=== PATIENT | male | born 1985 | race Caucasian/White ===

== ENCOUNTER 2017-08-11 12:26 | Emergency (ER) | payer OTHER ==
[2017-08-11 12:51] VITALS: BP 114/68; PULSE 69; RESP 18; TEMP 97.6
--- NOTE | 2017-08-11 14:11 | ED ---
Lower Extremity Injury HPI - General Chief Complaint: Extremity Injury, Lower Stated Complaint: Hip Pain-Fall Time Seen by Provider: 08/11/17 13:03 Source: patient, RN notes reviewed Mode of arrival: wheelchair Limitations: no limitations - History of Present Illness Initial Comments: This is a 32-year-old male who presents to the emergency department with chief complaint of right hip injury. Patient states that on Friday he slipped on a puddle of water in his kitchen. He states that he was able to catch himself but came down hard on his right foot. Since that time he has been experiencing right hip pain. He states that it is difficult to walk or move due to the pain. Denies any other injuries or trauma. Denies numbness or tingling. Denies fever, chills, chest pain, shortness of breath, abdominal pain, nausea or vomiting, constipation or diarrhea, dysuria or hematuria, headache or vision changes. - Related Data Previous Rx's Medication Instructions Recorded HYDROcodone/APAP 5-325MG [[employer] 1 - 2 tab PO Q6HR PRN #20 tab 05/25/16 5-325] Ibuprofen [Motrin] 800 mg PO Q8HR PRN #20 tab 05/25/16 Penicillin V Potassium [Pen Vee K] 500 mg PO QID 7 Days tab 05/25/16 Lidocaine Viscous [Xylocaine 1 ml PO Q3H PRN #25 ml 05/26/16 Viscous 2%] Ibuprofen 600 mg PO Q6HR #20 tablet 08/11/17 Allergies Allergy/AdvReac Type Severity Reaction Status Date / Time wool Allergy Unknown Verified 08/11/17 12:50 Review of Systems ROS Statement: Those systems with pertinent positive or pertinent negative responses have been documented in the HPI. ROS Other: All systems not noted in ROS Statement are negative. Past Medical History Past Medical History: No Reported History Additional Past Medical History / Comment(s): kidney stones History of Any Multi-Drug Resistant Organisms: MRSA Date of last positivie culture/infection: 2003 MDRO Source:: right elbow Past Surgical History: No Surgical Hx Reported Additional Past Surgical History / Comment(s): vastecomty 2013 Past Psychological History: No Psychological Hx Reported Smoking Status: Former smoker Past Alcohol Use History: Occasional Past Drug Use History: None Reported General Exam - General Exam Comments Initial Comments: General: Awake and alert, well-developed; in no apparent distress. is at bedside. HEENT: Head atraumatic, normocephalic. Pupils are equal, round and reactive to light. Extraocular movements intact. Oropharynx moist without erythema or exudate. Neck: Supple. Normal ROM. Cardiovascular: Regular rate and rhythm. No murmurs, rubs or gallops. Chest symmetrical. Respiratory: Lungs clear to auscultation bilaterally. No wheezes, rales or rhonchi. Normal respiratory effort with no use of accessory muscles. Musculoskeletal: Normal range of motion of the right hip. There is tenderness on palpation at greater trochanter. Sensation is intact. Pedal pulses are 2+ equal and palpable bilaterally. No obvious gross deformities, swelling or contusions noted. Skin: [place], warm and dry without rashes or lesions. Neurological: Alert and oriented x3. CN II-XII grossly intact. Speech is fluent and answers are appropriate. No focal neuro deficits. Psychiatric: Normal mood and affect. No overt signs of depression or anxiety noted. Limitations: no limitations Course Vital Signs 08/11/17 12:47 Temperature 97.6 F Pulse Rate 69 Respiratory 18 Rate Blood Pressure 114/68 O2 Sat by Pulse 100 Oximetry Medical Decision Making - Medical Decision Making This is a 32-year-old male who presented to the emergency department for evaluation of right hip injury. Patient did not fall directly onto his right hip but came down hard onto his right foot. Patient reports he has had difficulty ambulating due to pain in his right hip. Tenderness on palpation of the greater trochanter. X-rays revealed no acute fractures or dislocations. Patient is recommended to take anti-inflammatories and ice. Recommended stretching exercises. Recommended following up with his primary care provider. Patient is in no acute distress and will be discharged home. He is in agreement with plan and voices understanding. All questions were answered. - Radiology Data Radiology results: report reviewed X-ray right hip and AP pelvis impression: There is no acute fracture or dislocation in the pelvis or right hip. Mild femoral acetabular arthropathy bilaterally. Disposition Clinical Impression: Strain of right hip Disposition: HOME SELF-CARE Condition: Good Instructions: Hip Pain (ED), Muscle Strain (ED) Additional Instructions: Please take medications as prescribed. Please follow up with primary care provider within 1-2 days. Return to emergency department if symptoms should worsen or any concerns arise. Prescriptions: Ibuprofen 600 mg PO Q6HR #20 tablet Referrals: Meaghan Schmidt MD [Primary Care Provider] - 1-2 days Time of Disposition: 14:39
--- NOTE | 2017-08-11 14:14 | XR ---
EXAMINATION TYPE: XR Hip RT and AP Pelvis DATE OF EXAM: 08/11/2017 COMPARISON: NONE HISTORY: Right hip pain after injury. TECHNIQUE: A single AP view of the pelvis is obtained. Two views of the right hip are obtained. FINDINGS: There is no acute fracture/dislocation evident in the pelvis. The hip and sacroiliac join ts appear symmetric with mild femoral acetabular arthropathy demonstrated as small marginal osteophyt es from the acetabulum bilaterally. The overlying soft tissue appears unremarkable. Two views of right hip show no acute fracture or dislocation. No focal lytic or sclerotic lesion see n in the proximal right femur. The overlying soft tissue is unremarkable. IMPRESSION: There is no acute fracture or dislocation in the pelvis or right hip. Mild femoral aceta bular arthropathy bilaterally.
== END 2017-08-11 14:46 | disposition home or self-care (01) ==
LOC: EC 12:26
DX: S76.011A Strain of muscle, fascia and tendon of right hip, initial encounter (principal); Z86.14 Personal history of Methicillin resistant Staphylococcus aureus infection; Z87.891 Personal history of nicotine dependence; Z91.048 Other nonmedicinal substance allergy status; W01.0XXA Fall on same level from slipping, tripping and stumbling without subsequent striking against object, initial encounter; Y92.000 Kitchen of unspecified non-institutional (private) residence as the place of occurrence of the external cause
CPT/HCPCS: 73502; 99283

== ENCOUNTER → 2018-06-20 | Outpatient (CLI) | payer OTHER ==
--- NOTE | 2018-06-20 08:15 | MR ---
EXAMINATION TYPE: MR shoulder LT wo con DATE OF EXAM: 06/20/2018 7:43 AM COMPARISON: NONE HISTORY: Left shoulder pain TECHNIQUE: Multiplanar, multisequence imaging of the left shoulder is performed without contrast. FINDINGS: There is no evidence of an os acromiale. There is mild hypertrophic change and inflammatory changes in the left AC joint. The acromion is neutral. There is a small amount of fluid in this rotated. There is no evidence of a rotator cuff tear. The cartilaginous glenoid labrum appears unremarkable. The biceps tendon is normally situated within the biceps tendon groove and inserts normally upon the biceps anchor. No osseous lesion is seen. IMPRESSION: 1. NO EVIDENCE OF ROTATOR CUFF TEAR. 2. SMALL AMOUNT OF FLUID IN THE ROTATOR INTERVAL IS A NONSPECIFIC FINDING.
== END | disposition home or self-care (01) ==
LOC: RADMRIMAIN 07:11
PROVIDERS: ATTEND Orthopaedic Surgery
DX: M25.512 Pain in left shoulder (principal)

== ENCOUNTER → 2022-08-21 | Outpatient (CLI) | payer OTHER ==
--- NOTE | 2022-08-22 06:43 | MR ---
EXAMINATION TYPE: MR shoulder LT wo con DATE OF EXAM: 08/21/2022 COMPARISON: Prior MRI shoulder June 20, 2018 HISTORY: Left shoulder pain with difficulty raising arm overhead for 1.5 months TECHNIQUE: Multiplanar, multisequence imaging of the left shoulder is performed without contrast. FINDINGS: Rotator Cuff: Some increased signal in the supraspinatus and infraspinatus tendons including along bu rsal aspect of the distal supraspinatus tendon is redemonstrated. No tear is present. Rotator cuff mu scle bulk is preserved. Acromioclavicular Joint: [id number] superior capsular hypertrophy annular narrowing. No signifi cant spurring. Distal acromial morphology slightly downsloping anteriorly with loss of fat plane at t his level similar to prior. Glenohumeral Joint: Small to moderate size joint effusion is stable. No significant spurring. Labrum: Superior labrum remains intact. Biceps Tendon: The long head of biceps is in normal location within bicipital groove. Bone marrow signal: Slightly more prominent subchondral cyst inferior osseous glenoid anterior aspect coronal image 16. Other: No additional significant abnormality is appreciated. IMPRESSION: 1. Stable tendinosis of the rotator cuff tendons. No rotator cuff or labral tear seen. Degenerative c hanges similar to prior. Type II downsloping acromion with loss of the underlying fat plane anteriorl y suggestive of impingement. Correlate clinically.
== END | disposition home or self-care (01) ==
LOC: RADMRIMAIN 21:15
PROVIDERS: ATTEND Family Medicine
DX: M19.012 Primary osteoarthritis, left shoulder (principal); M67.814 Other specified disorders of tendon, left shoulder; G89.29 Other chronic pain

== ENCOUNTER → 2022-10-08 | Outpatient (CLI) | payer OTHER ==
--- NOTE | 2022-10-09 07:03 | MR ---
MRI CERVICAL SPINE: CLINICAL HISTORY: Neck pain, left shoulder pain. Neck pain, left shoulder pain. TECHNIQUE: Multiplanar, multisequence imaging of the cervical spine is performed without IV contrast. COMPARISON: Prior MRI cervical spine January 27, 2015. FINDINGS: Sagittal images of the cervical spine show the craniocervical junction to remain within nor mal limits. The cervical and upper thoracic spinal cord remains normal in signal. Persistent grade 1 retrolisthesis C5 on C6 and to lesser degree C6 on C7. Mild to moderate disc space narrowing C5-C6 level appears more prominent from prior otherwise the vertebral body and intravertebral disk heights are normal. The bone marrow signal intensity is within normal limits. Axial images show the C2-C3 through the C4-C5 levels to remain within normal limits. Axial images at the C5-C6 level show more prominent broad-based left paracentral disc protrusion now measuring 11 mm transversely by 5 mm AP diameter minimally effacing the anterolateral thecal sac and the ventral surface of the left spinal cord seen on axial image 27 with mild to moderate bilateral ne ural foraminal narrowing more prominent from prior. Axial images at C6-C7 level shows similar broad-based left paracentral/foraminal disc protrusion whic h is also more prominent from prior MRI base anterolateral thecal slack with slight indentation of th e ventral surface of spinal cord and causing asymmetric moderate left-sided neural foraminal narrowin g which appears more prominent from prior. Axial images at C7-T1 level remain within normal limits. IMPRESSION: Spondylolisthesis and degenerative change C5-C6 and C6-C7 level as detailed above has pro gressed from 2015 MRI.
== END | disposition home or self-care (01) ==
LOC: RADMRIMAIN 21:30
PROVIDERS: ATTEND Nurse Practitioner Family
DX: M47.22 Other spondylosis with radiculopathy, cervical region (principal); M43.12 Spondylolisthesis, cervical region; M25.512 Pain in left shoulder
CPT/HCPCS: 72141

== ENCOUNTER → 2022-11-18 | Outpatient (CLI) | payer OTHER ==
[2022-11-18 08:51] LABS: INR 1.9 (<1.2); Prothrombin Time 18.5 sec (9.0-12.0)
[2022-11-18 11:21] LABS: Blood Urea Nitrogen 14.5 mg/dL (9.0-27.0); Carbon Dioxide 25.6 mmol/L (21.6-31.8); Chloride 103 mmol/L (96-109); Glucose 76 mg/dL (70-110); Potassium 4.2 mmol/L (3.5-5.5); Sodium 140 mmol/L (135-145)
[2022-11-18 11:26] LABS: Basophils # (A) 0.03 X 10*3/uL (0.00-0.10); Basophils % (A) 0.4 %; Eosinophils # (A) 0.07 X 10*3/uL (0.04-0.35); Eosinophils % (A) 0.9 %; HCT 47.6 % (39.6-50.0); HGB 16.1 d/dL (12.0-15.0); Lymphocytes # (A) 1.61 X 10*3/uL (0.90-5.00); Lymphocytes % (A) 20.1 %; MCH 29.7 pg (27.0-32.0); MCHC 33.8 d/dL (32.0-37.0); MCV 87.7 FL (80.0-97.0); Mean Platelet Volume 10.8 FL (9.5-12.2); Monocytes # (A) 0.65 X 10*3/uL (0.20-1.00); Monocytes % (A) 8.1 %; NRBC Per 100 WBC 0 X 10*3/uL (0.00-0.01); Neutrophils # (A) 5.62 X 10*3/uL (1.80-7.70); Neutrophils % (A) 70.1 %; Platelet Count 224 X 10*3/uL (140-440); RBC 5.43 X 10*6/uL (4.40-5.60); RDW 13.7 % (11.5-14.5); WBC 8.01 X 10*3/uL (4.50-10.00)
== END | disposition home or self-care (01) ==
LOC: LABPAT 07:13
PROVIDERS: ATTEND Orthopaedic Surgery
DX: Z01.812 Encounter for preprocedural laboratory examination (principal); Z22.322 Carrier or suspected carrier of Methicillin resistant Staphylococcus aureus; M50.20 Other cervical disc displacement, unspecified cervical region
CPT/HCPCS: 36415; 80048; 85025; 85610

== ENCOUNTER → 2022-11-21 | Outpatient (CLI) | payer OTHER | END | disposition home or self-care (01) | LOC: LABPAT 10:54 | PROVIDERS: ATTEND Orthopaedic Surgery | DX: Z01.812 Encounter for preprocedural laboratory examination (principal); Z22.322 Carrier or suspected carrier of Methicillin resistant Staphylococcus aureus; M50.20 Other cervical disc displacement, unspecified cervical region | CPT/HCPCS: 87070 ==

== ENCOUNTER 2022-11-28 12:40 | Day surgery (SDC) | payer OTHER ==
[2022-11-22 14:55] VITALS: BMI 27.8
--- NOTE | 2022-11-27 22:44 | P.HPOR ---
History of Present Illness H&P Date: 10/31/22 .D:Date: 10/31/22 : 10:08am .T:Title: [facility] Date of :[birth year] [id number]: NKDA Age: 37 year Height: 5'11" Weight: 220 lbs BP:134/91 BMI: 30.68 kg/m2 Occupation: [employer] VAS: 7 CHIEF COMPLAINT: Cervical pain DOI: Chronic DOS: n/a Duration of current treatment regiment:n/a HISTORY: Xrays New xrays taken in office Trauma or injury No Work-Related No Pain description Sharp Location Posterior Patient notes that their pain radiates to left upper extremity Activity Modification No Hand Dominance Right TREATMENTS COMPLETED: 6 weeks of PT completed? Month and Year of last PT date? Yes Completed in 2013 with some relief Patient states he just had his eval 09/2022 Physician directed home exercise completed? Yes Medications No; List: N/A Alternative interventions Chiropractic: No Massage therapy: No R.I.C.E: No Brace: No Injections Yes How many? 5-7 Did they help? No, some relief than got worse RFA: No SUBJECTIVE: Mr. Jorge Jean returns to the office for a recheck of his cervical pain. Patient reports no changes in his symptoms, as he continues to experience a sharp, shooting pain throughout the cervical spine that radiates down into the bilateral upper extremities. The patient states that his upper extremity symptoms are associated with numbness and tingling. He states he has weakness into the left upper extremity as well. Patient states that he has had progression of his symptoms since his initial onset. The patent states that his symptoms have started to significantly affect his overall quality of life. The patient is not currently taking any pain medications. He continues to have moderate sleep disturbances. The patient has trialed several epidural steroid injections, physical therapy, at home exercises, at home heat/ice therapies, and medication management, all with no sustained or significant relief. At this time, the patient feels he has exhausted all conservative treatments and would like to discuss surgical options. Otherwise the patient denies any f/c/sob/cp and ambulates independently today. HPI: Mr. Jorge Jean returned to the office on 10/15/2022 for a recheck of his cervical pain and MRI results. Since his last office visit, he has completed his evaluation for PT. He states he has been performing some exercises and stretches at home. Patient reports no changes in his symptoms. He continues to report a sharp shooting cervical pain that radiates into the bilateral upper extremities, associated with numbness and tingling. He states he has weakness into the left upper extremity. Patient states he has had progression of his symptoms since his initial onset. Patient has been taking Flexeril prn without any relief of symptoms. He continues to have moderate sleep disturbances. MRI results have been reviewed and discussed. At this time patient feels he has exhausted all conservative treatments and would like to discuss surgical options. Otherwise the patient denies any f/c/sob/cp and ambulates independently. Mr. Jorge Jean was last seen on 09/25/22 regarding an evaluation of their cervical pain. Patient reports a sharp shooting cervical pain ongoing for many years and has progressed over hte last 2-3 months with no known injury or trauma to indicate an exact onset of their symptoms. In addition to their cervical pain, they do report that it radiates into the left upper extremity, associated without numbness and tingling. Patient reports he has seen Dr. Jerry a few weeks ago for his left shoulder pain. He was provided an injection at that visit. Overall the patient has seen a progressive increase in symptoms since their onset. Mr. Jorge Jean symptoms are exacerbated with prolonged or overhead activities, reaching and lifting, due to this they notes that it is increasingly difficult for Mr. Jorge Jean to complete many of their daily tasks. Patient is having severe sleep disturbances as well due to their ongoing pain and associa daniel symptoms. Regarding treatments, the patient has previously trialed the above listed modalities. Patient denies trialing any other modalities at this time. For their symptoms, the patient denies taking analgesics/anticoagulants/narcotics/ANA-analogs. Otherwise the patient denies any f/c/sob/cp and ambulates independently. The patients' past social, medical, family, surgical history, as well as review of systems, have been reviewed. Please refer to the Neurosurgery History and Physical form that has been scanned in to our electronic medical record system. 14 points review of systems completed and as stated in HPI, all other systems reviewed are negative. Social History: [id number]: current smoker P3, marijuana daily Smoking Amount: 1/2 PPD 10/15/22 .CE:Clinical Elements:Clinical Elements: Alcohol: none P3 P3 Family History: Reviewed, see appropriate section of the chart for details. P2 Past Medical History: Reviewed, see appropriate section of the chart for details. Current Medications: none P1 PHYSICAL EXAMINATION: General: Awake, alert, appropriate for age, in no acute distress. HEENT: No unusual neck masses around region of lateral neck triangle, thyroid, supraclavicular groove Heart: Regular rate and rhythm, normal S1, S2 and no murmur/gallop. Lungs: Clear to auscultation bilaterally with no use of accessory muscles. Extremities: Skin warm and dry without acute lesions, coloration, temperature, skin intact, no tenderness or erythema Integument: Hairy patches: ABSENT Dorsal skin dimples: ABSENT Cafe au lait spots: ABSENT Surgical incisions: n/a Palpation: Please see Pain drawing on Intake sheet for further detail. Midline spinal tenderness: No E6 Cervical Tenderness: YES base of C7 E6 Paralumbar tenderness: No E6 Parathoracic tenderness: No E6 Buttocks tenderness: No E6 Sacroilliac Tenderness: No POSTURAL and MUSCULO-SKELETAL EVALUATION: Coronal Balance: NEUTRAL Recumbent testing: Patient is able to lay flat on back Sagittal Balance: NEUTRAL Shoulder Profile: LEVEL Pelvic Girdle: LEVEL Neck ROM: RESTRICTED Lumbar ROM: UNRESTRICTED Shoulder ROM: Limited to the left due to pain Hip ROM: Symmetrical Knee ROM: Symmetrical Hands: Normal appearance, symmetrical Feet: Normal appearance, Symmetrical VASCULAR STATUS : LEFT RIGHT Wrist Pulses INTACT INTACT Pedal Pulses (Dors. pedis & post.tibialis) INTACT INTACT Color NORMAL NORMAL Edema Absent Absent NEUROLOGIC EXAMINATION: Mental Status:Awake and alert, fully oriented, with normal attention, concentration and memory, and fluent, appropriate speech. Cranial Nerves: I: Olfactory not tested. II: Visual acuity normal, no visual field deficit noted with confrontation. III,IV: Normal pupillary reflexes & intact extraocular movements without nystagmus. V,: Intact symmetrical facial sensation. VII: Intact symmetrical facial motor movement VIII: Hearing intact. IX,X: Intact gag, swallow, & normal voice. XI: Sternocleidomastoid, trapezius function intact. XII: Tongue midline with normal movements. L'hermitte's Sign: Negative / absent Spurling'Sign: Absent bilaterally. Cubital percussion test: Absent bilaterally. Silva-Tinel sign - Carpal region: Absent bilaterally. Straight Leg Raising: Absent bilaterally. Crossed straight leg raise: negative O8 MOTOR EXAM (0-5/5, N/T Muscle appearance: Symmetrical, without signs of atrophy or dystrophy UPPER EXTREMITY RIGHT LEFT Shoulder Abduction 5/5 4/5 Biceps 4/5 4/5 Triceps 5/5 4/5 Wrist Extension 4+/5 4/5 Hand Intrinsic 5/5 4/5 Paint Line Operator 4+/5 4/5 Hand and finger dexterity intact bilaterally?NO Disdiadochokinesis examination negative bilaterally? yes LOWER EXTREMITY RIGHT LEFT Hip Flexion 5/5 5/5 Knee Extension 5/5 5/5 Knee Flexion 5/5 5/5 Dorsiflexion 5/5 5/5 Plantarflexion 5/5 5/5 EHL 5/5 5/5 FHL 5/5 5/5 Toe heel walk / heel-toe walk intact while maintaining satisfactory balance? yes Squatting/straightening w/o assistance to a min of 60 degree knee flexion? yes Single leg stance: intact Trendelenburg sign negative bilaterally REFLEXES(0-4/2, NT)Upper ExtremityLower Extremity Right 2 2 Left 2 2 Pathological Reflexes RIGHT LEFT Silva's Absent Absent Clonus Absent Absent Babinski Absent Absent Sensory system (0-4, N/T) Test type RU RAY RL LL Joint-Position 2 2 2 2 Vibration 2 2 2 2 Pain & LT sense 2 2 2 2 Dermatomal Deficit: C6 C5-6 None None Gait and Functional Evaluation: Ambulatory aids:Independent Romberg's test:Intact bilaterally Steady Gait RADIOGRAPHS: [facility] of CervicalSpine: Reviewed with patient in office today. IMPRESSION: The cervical and upper thoracic spinal cord remains normal in signal. Persistent grade 1 retrolisthesis C5 on C6 and to lesser degree C6 on C7. Mild to moderate to severe disc space narrowing C5-C6 level appears more prominent from HNP at these levels otherwise the vertebral body and intravertebral disk heights are normal. The bone marrow signal intensity is within normal limits. Spondylolisthesis and degenerative change C5-C6 and C6-C7 level as detailed above has progressed from 2015 MRI. ASSESSMENT: 1. C5-7 HNP, Large 2. Severe stenosis C5-7 3. Bilateral upper extremity radiculopathy 4. Left upper extremity weakness PLAN: Based on my findings I suggest the following course of action: -I discussed treatment options with the patient, including operative and non- operative options, and they have elected to proceed with the following surgical procedure: C5-7 total disc replacement The indications, risks, benefits, and alternatives to surgery were discussed with the patient and family at length. Specifically (but not limited to) the risks of infection, stiffness, recurrence of symptoms, need for revision surgery, local numbness, neurovascular injury, and blood clots were discussed. The patient's questions were answered. - I discussed with the patient that he will need to remain off work approximately 3 months post procedure. - Ambulate daily - Take medications as directed - Ice and rest for pain and swelling control. Spine Surgery Risk Review Mr. Jorge Jean is presenting for evaluation of neck pain. It was my pleasure to have seen and examined Mr. Jorge Jean. In our visit today we have had a chance to go over subjective complaints, physical examination findings and treatments including the natural course history without intervention and various interventional options. The patients imaging demonstrates: MRI [facility] at [facility] from10/08/22 of CervicalSpine: Reviewed with patient in office today. IMPRESSION: The cervical and upper thoracic spinal cord remains normal in signal. Persistent grade 1 retrolisthesis C5 on C6 and to lesser degree C6 on C7. Mild to moderate disc space narrowing C5-C6 level appears more prominent from prior otherwise the vertebral body and intravertebral disk heights are normal. The bone marrow signal intensity is within normal limits. Spondylolisthesis and degenerative change C5-C6 and C6-C7 level as detailed above has progressed from 2015 MRI. On physical exam, Mr. Jorge Jean demonstrates: continued sharp, shooting pain throughout the cervical spine that radiates down into the bilateral upper extremities. The patient states that his upper extremity symptoms are associated with numbness and tingling. He states he has weakness into the left upper extremity as well. Patient states that he has had progression of his symptoms since his initial onset. The patent states that his symptoms have started to significantly affect his overall quality of life. I have explained to the patient that as their condition progresses it will cause further neurological deficits and eventual paralysis. Based on the patients imaging, physical exam, and the rapid progression and disabling nature of their symptoms, at this time I recommend surgery in the form of a: C5-7 total disc replacement. I discussed the risk and benefits of this procedure at length with Mr. Jorge Jean. The patient agreed to considered pursuing the procedure above mentioned . Prior to surgery, she should follow up with her PCP (Cardio, ID, IM etc) for clearance. Questions were invited and answered, and the patient wishes to proceed as outlined below. Currently, I am recommendin.C5-7 total disc replacement 2.Follow up with PCP for surgical clearance 3.Review of surgical risks and benefits as well as an educational packet on the proposed surgical procedure. Risks: All surgical procedures come with inherent risks, including those related to positioning, anesthesia, intraoperative findings, and postoperative complications. It is important to understand that surgery does not come with any guarantee of a successful outcome as complications and adverse events are always possible. The patient was given a handout in office today discussing the surgical procedure and risks associated with the intervention, both of which were discussed with the patient. These risks include but are not limited to the following: * Experiencing same, different or even worse symptoms in back, neck, arms, or legs compared to before surgery. Requiring further surgery or other forms of treatment presently or at some time in the future at same or other levels of the intended spine surgery. On an extreme but fortunately relatively rare basis severe complication such as blindness, stroke, heart attack, temporary and/or permanent nerve injury, paralysis, coma, or may occur, sometimes without known explanation. Surgical complications may include but are not limited to risk of infection, fluid accumulation in the surgical dissection site, including a seroma or hematoma, that requires additional surgery, wound drainage, bleeding, new numbness or weakness, vision changes/loss, spinal fluid leakage, non-healing and/or infected incision, headaches, difficulty or inability to swallow, hoar seness, hemopneumothorax, pneumothorax, impotence, retrograde ejaculation, vaginal dryness; injury to nerves, spinal cord, blood vessels, lymphatics or other vital organs (i.e., bowel injury, injury to the great vessels); heterotopic bone formation; complications related to the hardware such as screws, rods, cages including misplaced hardware, device failure, instrumentation at the wrong spine level, hardware fracture/breakage, or hardware loosening; vertebral failure of the spinal column above or below the newly placed hardware; retained surgical instrumentations or devices and the need for further surgery. * Medical risks of the planned spine surgery include but are not limited to generalized Infections to the whole body or local areas outside of the surgical site (sepsis), heart attack, bleeding, anaphylaxis, meningitis, seizure, epilepsy, hearing loss, burn shine, laceration of the head or other areas of the body, bruising, hypersensitivity of the skin, bladder over distension; allergic reaction; shoulder injury related to positioning; fat, blood and air clots to other areas of the body like heart, lungs, brain; failure of internal organs such as lungs, kidneys, liver and excessive bleeding. If blood transfusions are necessary, note that transfusions may cause intolerance reactions such as anaphylaxis or other complex reactions. Despite best efforts, the results of spine surgery might not heal in terms of bone, soft tissues such as skin, fascia, ligaments, and joints. Additionally, in order to achieve best possible results, spine surgery may be carried out bey ond the initially planned levels and involve decompression, fusion including insertion of hardware at levels other than the original intended area of surgical interest change some portions of the procedure in order to ensure the best possible outcomes. With spine surgery and spinal fusion, there are different off label uses of instrumentation (devices, implants and hardware) as well as biological substances (bone morphogenic proteins, demineralized bone matrix) as well as using extra bone from allograft sources (i.e. cadaver bone) or autograft (iliac crest bone, ribs, or the spine itself). The patient has been given information about these practices and their inherent risks and benefits. [facility] is an educational center that serves as a training facility for neurosurgical and orthopedic ASSISTED LIVING COORDINATOR and Nursing students. Physician assistants are medically trained surgical providers who function in the outpatient, inpatient, and operating room setting under the direct supervision of the attending surgeon. [facility] has multiple operating rooms with single and overlapping rooms running daily. They currently function under the required guidelines as produced by the Senate Finance Committee with regards to the overlapping rooms and will continue to comply with changes to this policy as they occur. The requirements include and are complied with as follows: (1) the critical portions of the overlapping rooms will not occur at the same time, (2) the attending physician will be physically present during the critical portions of the procedure and immediately available during the entire case, and (3) a back-up attending is designated should the primary attending not be immediately available. The patient has had a chance to review all the listed information, has been given print outs detailing this information, and has had all his/her questions answered to their satisfaction. It was my pleasure to have seen and examined Mr. Jorge Jean. In our visit today we have had a chance to go over my understanding of our patient's current condition, the natural course history without intervention and various interventional options. Questions were invited and answered, and the patient wishes to proceed as outlined above. I have seen and examined the patient for 25 minutes and we have spent more than 50% of the time in repeat and detailed counseling about the patient's condition, its natural course history with out and as much as can be predicted with surgery and re-review of various surgical treatment options. In conclusion, Mr. Jorge Jean requested we proceed with the above suggested surgery and are willing to accept risks and limitations of the suggested surgery as nature of the disease process and our best attempts at treatment for the condition. Thank you again for allowing us to be part of your patient's care. Please don't hesitate to contact me if you have any further questions. Follow-up: Post procedure Patient Education: (Informational booklet, instructions, etc) given at today's appointment: Yes .ED:Patient Education: Y Medications Reviewed: YES Attestation: In our visit today Mr. Jorge Jean and I have had a chance to go over my understanding of the patient's current condition, the natural course history without intervention and various interventional options. Questions were invited and answered, and the patient wishes to proceed as outlined above. I will be sure to keep you updated afterMr. Jorge Jean returns here for further follow-up. Thank you again for your referral. Please do not hesitate to contact me if you have any further questions. Signed and authenticated by: [facility] [address] [place] [address] This message is confidential, intended only for the named recipient(s) and may contain information that is privileged or exempt from disclosure under applicable law. If you are not the intended recipient(s), you are notified that the dissemination, distribution or copying of this information is strictly prohibited. If you received this message in error, please notify the sender then delete this message. Patient verbalizes understanding of the information discussed. The above note was initiated by Marce Bustos, physician recording recovery assistant for Dr. Jerry Phoenix. This note has been reviewed by Dr. Phoenix, who has made his personal changes and impressions for this document. CC: Meaghan Fuchs MD # SIGNED BY Jerry Phoenix (GOO)11/08/2022 08:17PM Past Medical History Past Medical History: Diabetes Mellitus, GERD/Reflux, Musculoskeletal Disorder, Neurologic Disorder, Osteoarthritis (OA) Additional Past Medical History / Comment(s): Hx migraines, none in a long time. Hx kidney stones X1. Borderline Diabetes. Neuropathy and Carpal Tunnel in arms and hands, left shoulder tendonits. History of Any Multi-Drug Resistant Organisms: MRSA Date of last positivie culture/infection: 2003 MDRO Source:: right elbow Past Surgical History: No Surgical Hx Reported Additional Past Surgical History / Comment(s): Vasectomy. Past Anesthesia/Blood Transfusion Reactions: No Reported Reaction Past Psychological History: No Psychological Hx Reported Smoking Status: Current every day smoker Past Alcohol Use History: Rare Additional Past Alcohol Use History / Comment(s): Trying to quit smoking, started in teens, 1 1/2 ppd, currently down to 1/2 ppd. Past Drug Use History: Marijuana Additional Drug Use History / Comment(s): Marijuana use daily. Aware no use 24 hrs prior to procedure. - Past Family History Mother Family Medical History: Cancer Additional Family Medical History / Comment(s): Skin cancer. Sister(s) Family Medical History: Deep Vein Thrombosis (DVT) Medications and Allergies Home Medications Medication Instructions Recorded Confirmed Type No Known Home Medications 11/22/22 11/22/22 History Allergies Allergy/AdvReac Type Severity Reaction Status Date / Time wool Allergy Unknown Verified 11/22/22 14:37 Physical Examination Osteopathic Statement: *. No significant issues noted on an osteopathic structural exam other than those noted in the History and Physical/Consult.
[~2022-11-28 12:40] MED LIST: DEXAMETHASONE SOD PHOSPHATE 4 MG/ML 1 ML VIAL IV ONE; HYDROmorphone 0.5 MG/0.5 ML SYRINGE IVP PRN; LACTATED RINGERS 1,000 ML IV SCH; LIDOCAINE 1% (10MG/ML) FOR IV START INTRADERMA PRN; MIDAZOLAM 2 MG/2 ML VIAL IV PRN; ONDANSETRON 4 MG/2 ML VIAL IVP ONE
[2022-11-28] MEDS ORDERED: ACETAMINOPHEN TAB 500 MG TAB ONE (13:37)
[2022-11-28] MEDS ORDERED: GABAPENTIN 300 MG CAP PO ONE (13:46)
[2022-11-28 14:18] LABS: Glucose,Whole Blood 101 mg/dL (70-110)
[2022-11-28 16:15] LABS: Prothrombin Time 10.7 sec (9.0-12.0)
[2022-11-28] MEDS ORDERED: ROCURONIUM 10 MG/ML (5 ML VIAL) IV ONE (16:18)
[2022-11-28] MEDS ORDERED: LIDOCAINE 2% INJ 20 MG/ML (2 ML VIAL) ONE (16:18)
[2022-11-28] MEDS ORDERED: GLYCOPYRROLATE 0.2 MG/ML 2 ML VIAL ONE (16:18)
[2022-11-28] MEDS ORDERED: PROPOFOL 10 MG/ML 20 ML VIAL IV ONE (16:18)
[2022-11-28] MEDS ORDERED: SUCCINYLCHOLINE CHLORIDE 200 MG/10 ML VIAL IV ONE (16:18)
[2022-11-28] MEDS ORDERED: MIDAZOLAM 2 MG/2 ML VIAL ONE (16:18)
[2022-11-28] MEDS ORDERED: fentaNYL (PF) 50 MCG/ML 2 ML AMP ONE (16:18)
[2022-11-28] MEDS ORDERED: NEOSTIGMINE 1 MG/ML 10 ML VIAL ONE (16:18)
[2022-11-28] MEDS ORDERED: KETAMINE 10 MG/ML 20 ML VIAL ONE (16:18)
[2022-11-28] MEDS ORDERED: GELATIN SPONGE,ABSORB (LARGE) 1 EACH SPONGE MISCELLANE ONE (17:08)
[2022-11-28] MEDS ORDERED: THROMBIN (BOVINE) 5,000 UNIT VIAL MISCELLANE ONE (17:09)
--- NOTE | 2022-11-28 18:38 | P.OP ---
Date of Procedure: 11/28/22 Preoperative Diagnosis: 1. C5-6, C6-7 HNP WITH SEVERE STENOSIS 2. UE RADICULOPATHY B/L 3. UE WEAKNESS 4. NECK PAIN Postoperative Diagnosis: 1. C5-6, C6-7 HNP WITH SEVERE STENOSIS 2. UE RADICULOPATHY B/L 3. UE WEAKNESS 4. NECK PAIN Procedure(s) Performed: 1. C5-6 AND C6-7 TOTAL DISC REPLACEMENTS (69223, [id number]) USE OF IONM USE OF IO MICROSCOPE Implants: -PRO DISC C SK 6 MM LARGE [id number] Anesthesia: GETA Surgeon: Jerry Phoenix Project Leader #1: Satish De La Paz (WAS PRESENT AND ASSISTED WITH ALL ASPECTS OF THE CASE FROM POSITION TO CLOSURE) Estimated Blood Loss (ml): 25 IV fluids (ml): 750 Urine output (ml): 0 Pathology: none sent Condition: stable Disposition: PACU Indications for Procedure: Mr. Jorge Jean is presenting for evaluation of neck pain. It was my pleasure to have seen and examined Mr. Jorge Jean. In our visit today we have had a chance to go over subjective complaints, physical examination findings and treatments including the natural course history without intervention and various interventional options. The patients imaging demonstrates: [facility]: Reviewed with patient in office today. IMPRESSION: The cervical and upper thoracic spinal cord remains normal in signal. Persistent grade 1 retrolisthesis C5 on C6 and to lesser degree C6 on C7. Mild to moderate disc space narrowing C5-C6 level appears more prominent from prior otherwise the vertebral body and intravertebral disk heights are normal. The bone marrow signal intensity is within normal limits. Spondylolisthesis and degenerative change C5-C6 and C6-C7 level as detailed above has progressed from 2015 MRI. On physical exam, Mr. Jorge Jean demonstrates: continued sharp, shooting pain throughout the cervical spine that radiates down into the bilateral upper extremities. The patient states that his upper extremity symptoms are associated with numbness and tingling. He states he has weakness into the left upper extremity as well. Patient states that he has had progression of his symptoms since his initial onset. The patent states that his symptoms have started to significantly affect his overall quality of life. I have explained to the patient that as their condition progresses it will cause further neurological deficits and eventual paralysis. Based on the patients imaging, physical exam, and the rapid progression and disabling nature of their symptoms, at this time I recommend surgery in the form of a: C5-7 total disc replacement. I discussed the risk and benefits of this procedure at length with Mr. Jorge Jean. The patient agreed to considered pursuing the procedure above mentioned . Prior to surgery, she should follow up with her PCP (Cardio, ID, IM etc) for clearance. Questions were invited and answered, and the patient wishes to proceed as outlined below. Currently, I am recommendin.C5-7 total disc replacement Description of Procedure: C5-7 TDR The patient was seen and examined in the preoperative area. All preoperative protocols were followed. Informed consent was obtained risks and benefits of the procedure were discussed at length. Risks including bleeding infection damage to the surrounding tissue and risk of reoperation were discussed with the patient. Risk of anesthesia up to and including was a discussed with the patient. These are outlined in the risk review. They were willing to accept these risks and all the risks of surgery. The patient was given a weight-based dose of antibiotics in the form of 2 g Ancef. The patient was seen and ev aluated by the anesthesia team who deemed them fit for surgery. The site was marked, the patient was willing to proceed with the procedure. The patient was transferred to the operative suite by the Department of anesthesia. They were then drifted off to sleep by the department anesthesia and GETA was performed. The patient tolerated this well. Zhao catheter was placed by nursing staff, a-traumatically. Once confirmation of lines and ventilation the patient was transferred to a Supine Bull table very carefully. All bony prominences including wrists, elbows, axilla, chest, hips, and thighs, and feet were padded very well. Special attention was paid to the genitalia, and these were padded accordingly. SCDs were placed on bilateral lower extremities and were connected. Arms were well padded and placed at their side thumbs up.Shoulder roll was placed and shoulder were gently taped to table. Once in position, again we confirmed good ventilation capabilities and that lines were running appropriately. The patients Cervical spine was then exposed. 1010s were placed outlining the incision site. Standard alcohol was used to clean the incision site and allowed to dry. C-arm was used to bio-miguel the patient and confirm level for incision which was marked with a skin marker. Operative briefing was performed with all teams and everyone in agreement to proceed. The patient was then prepped and draped in a normal sterile fashion. Timeout was then performed, and all parties agreed with the procedure to be performed. Transverse skin incision was then made on the right side of the patients neck 3 cm and dissection taken down to the platysma which was split transversely. Sub platysma flap was made, and interval identified between SCM and medial structures. Omohyoid was visualized and protected. Blunt dissection taken down to the anterior cervical facia which was identified. Blunt prob was then placed and lateral image taken which confirmed levels for operation. These levels were then marked with a bovi. Subperiosteal dissection of the longissimus muscles were then done over these levels identifying uncovertebral joints bilaterally. Retractor was then placed deep to these muscles and held in place with a bed arm. Laurel pins were placed into C6 and C7 and gentle parallel distraction taken out over the levels. Greta rongure used to remove disc material. Operating microscope brought in for visualization. Complete discectomy performed at this level with curette, rongure and pituitary. High speed yessica used to remove osteophytes anteriorly and posteriorly until PLL was identified. 6-0 up curette then used to identify the canal and resect the PLL. 2-0 and 3-0 Kerrison used then to remove PLL and disc herniation and performed b/l foraminotomies. Once good decompression accomplished, meticulous hemostasis was performed. Sizers were then placed under lateral fluoroscopy until the desired height and alignment. A 6 trial was then placed and secured. Distraction removed for cuts. AP and lateral image confirmed central placement. Chisel was then sent over the trial to create the keel cuts. Trial was then removed and gentle distractio n placed again. Further clean up of the endplates done as well as foramen and decompression. Disc space was irrigated thoroughly. Final implant was then placed under lateral image to match the keel cuts and was placed optimally on AP and lateral imaging. Once inplace the implant was tested and was secured. Motors run before and after implant placement were stable. The wound bed was irrigated. Distraction pin removed from C7 and bone wax placed in its void. Bone wax placed on any bleeding bony surfaces. Retractors were then replaced around C5-6. Laurel pin were placed into C5 and gentle parallel distraction taken out over the levels C5-6. Greta rongure used to remove disc material. Operating microscope brought in for visualization. Complete discectomy performed at this level with curette, rongure and pituitary. High speed yessica used to remove osteophytes anteriorly and posteriorly until PLL was identified. 6-0 up curette then used to identify the canal and resect the PLL. 2-0 and 3-0 Kerrison used then to remove PLL and disc herniation and performed b/l foraminotomies. Once good decompression accomplished, meticulous hemostasis was performed. Sizers were then placed under lateral fluoroscopy until the desired height and alignment. A 6 trial was then placed and secured. Distraction removed for cuts. AP and lateral image confirmed central placement. Chisel was then sent over the trial to create the keel cuts. Trial was then removed and gentle distraction placed again. Further clean up of the endplates done as well as foramen and decompression. Disc space was irrigated thoroughly. Final implant was then placed under lateral image to match the keel cuts and was placed optimally on AP and lateral imaging. Once inplace the implant was tested and was secured. Motors run before and after implant placement were stable. The wound bed was irrigated. Distraction pins removed and bone wax placed in their void. Bone wax placed on any bleeding bony surfaces. Surgicel then placed deep in the wound and retractors removed after inspection without injury. Final AP and lateral images confirmed good placement of implant with good height and alignment adventism. The wound was then irrigated copiously with NSS. Surgicel placed deep in the wound. Layered closure then performed with 3-0 Vicryl in the platysma and sub- Q tissue. 4-0 Strata fix in the subcuticular tissue. The wound was then cleaned, and dried and skin glue placed. Once glue dried an Opifoam was placed. The patient was then transferred back to their hospital bed a-traumatically. They were placed in a soft collar. They were then awakened by the department of anesthesia having tolerated the procedure well without complications.
[2022-11-28] MEDS ORDERED: CYCLOBENZAPRINE 5 MG TAB PO PRN (18:40)
[2022-11-28] MEDS ORDERED: HYDROcodone/APAP 5-325MG 1 EACH TAB PO PRN (18:40)
[2022-11-28] MEDS ORDERED: HYDROmorphone 0.5 MG/0.5 ML SYRINGE IVP PRN (18:40)
[2022-11-28] MEDS ORDERED: SENNOSIDES-DOCUSATE SODIUM 1 EACH TAB PO PRN (18:40)
[2022-11-28] MEDS ORDERED: MAGNESIUM HYDROXIDE 2,400 MG/30 ML CUP PO PRN (18:40)
[2022-11-28] MEDS: HYDROmorphone 1 MG/ML 1 ML SYRINGE IVP PRN (21:07)
--- NOTE | 2022-11-28 22:06 | FL ---
EXAMINATION TYPE: FL guidance operating room, XR cervical spine limited DATE OF EXAM: 11/28/2022 CLINICAL HISTORY: Neck pain. TECHNIQUE: Fluoroscopy. Intraoperative limited view cervical spine COMPARISON: MRI cervical spine 10/08/2022 . FINDINGS: Fluoroscopic guidance was provided during cervical fusion procedure performed by Dr. South tamez. A total of 26 seconds of fluoroscopic time was utilized during the procedure and 7 spot image s are acquired. Total DAP = 1.0929 Gy x cm2. Images acquired show placement of metallic endplates at C5-C6 and C6-C7 levels. IMPRESSION: As Above.
[2022-11-29] MEDS: HYDROmorphone 1 MG/ML 1 ML SYRINGE IVP PRN (00:44)
[2022-11-29] MEDS: ACETAMINOPHEN TAB 325 MG TAB PO SCH ×2 (00:45→05:49)
[2022-11-29] MEDS: NICOTINE 21MG/24HR PATCH TRANSDERM SCH ×2 (00:56→11:10)
--- NOTE | 2022-11-29 04:25 | P.CONS ---
History of Present Illness - Reason for Consult Consult date: 11/28/22 post op medical management - Chief Complaint C spine surgery - History of Present Illness 37 year old male with no significant past medical history patient presented for scheduled C spine surgery secondary to chronic pain and radiculopathy . patient tolerated procedure well no observed immediate post op complications, denies any chest pain , trouble breathing, abd pain , nausea or vomiting, denies any fever, chills. denies any new onset weakness or focal neuro deficits. admits to tobacco smoking and marijuana occasionally review of systems Pertinent positives as noted in HPI. All other systems were reviewed and are negative on exam Constitutional: No acute distress, conversant, pleasant Eyes: Anicteric sclerae, moist conjunctiva, Pupils equal round reactive to light ENMT: NC/AT Oropharynx clear, no erythema, or exudates Lungs: Clear to auscultation Clear to percussion Normal respiratory effort, no accessory muscle use Cardiovascular: Heart regular in rate and rhythm, No murmurs, gallops, or rubs No peripheral edema Abdominal: Soft Nontender, no guarding, rebound or rigidity Abdomen moving with respiration Normoactive bowel sounds No hepatomegaly, No splenomegaly No palpable mass No abdominal wall hernia noted Skin: Normal temperature, tone, texture, turgor Extremities: No digital cyanosis No clubbing Pedal pulses intact and symmetrical Radial pulses intact and symmetrical No calf tenderness Psychiatric: Alert and oriented to person, place and time Appropriate affect Neuro Muscles Strength 5/5 in all 4 extremities Sensation to light touch grossly present throughout Cranial nerves II-XII grossly intact Lymphatics: no palpable cervical or supraclavicular lymph nodes Past Medical History Past Medical History: Diabetes Mellitus, GERD/Reflux, Musculoskeletal Disorder, Neurologic Disorder, Osteoarthritis (OA) Additional Past Medical History / Comment(s): Hx migraines, none in a long time. Hx kidney stones X1. Borderline Diabetes. Neuropathy and Carpal Tunnel in arms and hands, left shoulder tendonits. History of Any Multi-Drug Resistant Organisms: MRSA Year Discovered:: 2003 MDRO Source:: right elbow Past Surgical History: No Surgical Hx Reported Additional Past Surgical History / Comment(s): Vasectomy. Past Anesthesia/Blood Transfusion Reactions: No Reported Reaction Past Psychological History: No Psychological Hx Reported Smoking Status: Current every day smoker Past Alcohol Use History: Rare Additional Past Alcohol Use History / Comment(s): Trying to quit smoking, started in teens, 1 1/2 ppd, currently down to 1/2 ppd. Past Drug Use History: Marijuana Additional Drug Use History / Comment(s): Marijuana use daily. Aware no use 24 hrs prior to procedure. - Past Family History Mother Family Medical History: Cancer Additional Family Medical History / Comment(s): Skin cancer. Sister(s) Family Medical History: Deep Vein Thrombosis (DVT) Medications and Allergies Home Medications Medication Instructions Recorded Confirmed Type No Known Home Medications 11/22/22 11/28/22 History Allergies Allergy/AdvReac Type Severity Reaction Status Date / Time wool Allergy Unknown Verified 11/28/22 13:07 Physical Exam Vitals: Vital Signs Temp Pulse Pulse Resp BP BP Pulse Ox 11/29/22 01:47 98.3 F 101 H 20 126/75 95 11/28/22 20:45 78 131/93 100 11/28/22 20:30 77 128/80 99 11/28/22 20:15 87 125/79 97 11/28/22 20:00 97.5 F L 82 17 156/85 100 11/28/22 19:45 90 16 139/84 100 11/28/22 19:30 96 16 121/82 98 11/28/22 19:16 86 16 106/67 100 11/28/22 19:00 97.4 F L 60 16 135/90 100 11/28/22 13:18 97.6 F 67 16 119/70 100 Intake and Output 11/28/22 11/28/22 11/29/22 14:59 22:59 06:59 Intake Total 600 1150 Output Total 25 Balance 600 1125 Intake: IV 600 1150 Output: Estimated Blood Loss 25 Other: Voiding Method Toilet Urinal Assessment and Plan Assessment: chronic neck pain s/p C spine surgery for C5- C7 disc replacement pain control and dvt ppx per orhopedic team tobacco smoking counseled to quit smoking nicotine replacement therapy offered check CBC and BMP in AM stable from medical stand point thank you for this consultation
[2022-11-29] MEDS: HYDROcodone/APAP 10-325MG 1 EACH TAB PO PRN ×2 (05:47→11:14)
--- NOTE | 2022-11-29 08:36 | CT ---
EXAMINATION TYPE: CT cervical spine wo con DATE OF EXAM: 11/28/2022 COMPARISON: MRI cervical spine 10/08/2022 HISTORY: Disc replacement CT DLP: 553.7 mGycm Automated exposure control for dose reduction was used. Contrast: None Technique: Axial images 2 mm thick sections. Reconstructed images in the coronal and sagittal plane. FINDINGS: Disc replacement has been performed C5-6 C6-7. Vertebral body heights are preserved. There is some garcia bcutaneous air within the prevertebral space compatible with recent surgery. Note is made of some mild left paracentral endplate spurring at C5-6 no spinal canal stenosis is pres ent. Minimal left paracentral C6-7 spurring may be present without stenosis. Vertebral body alignment is preserved. Posterior spinal lamellar line is intact. An old avulsion from C7 spinous process may be present. IMPRESSION: 1. POSTSURGICAL CHANGES FROM DISC PROSTHESIS C5-6 C6-7.
--- NOTE | 2022-11-29 08:36 | P.PN ---
Subjective Progress Note Date: 11/29/22 Principal diagnosis: 1. C5-7 HNP, Large 2. Severe stenosis C5-7 3. Bilateral upper extremity radiculopathy 4. Left upper extremity weakness Patient seen and examined this morning. Patient is sitting upright in bed. He states that his pain is controlled on current regimen. He's been ambulatory in hallways and within room without any difficulty. Surgical incision to the anterior cervical spine, surgical dressing is clean dry and intact with no shadowing noted. Soft cervical collar is in place. Patient reports improvement in his symptoms since procedure, slight discomfort between shoulder blades. Patient denies any difficulty with swallowing or airway. He is tolerating a soft diet. Patient is looking forward to going home later today. Objective - Vital Signs Vital signs: Vital Signs Temp 98.3 F 11/29/22 01:47 Pulse 101 H 11/29/22 01:47 Resp 20 11/29/22 01:47 BP 126/75 11/29/22 01:47 Pulse Ox 95 11/29/22 01:47 FiO2 Intake & Output 11/28/22 11/29/22 11/29/22 18:59 06:59 18:59 Intake Total 1650 100 Output Total 25 Balance 1625 100 Weight 90.718 kg Intake: IV 1650 100 Output: Estimated Blood Loss 25 Other: Voiding Method Toilet Urinal # Voids 3 - Exam Physical Examination General: The patient is awake and alert, in no acute distress Skin: Skin is warm and dry with no obvious rashes or lesions. Surgical incision to the anterior cervical spine, dressing is clean dry and intact with no shadowing noted. Eye: Pupils are equal, round and reactive to light, extra-ocular movements are intact; there is normal conjunctiva bilaterally. Neck: The neck is supple, there is mild tenderness and limited range of motion due to surgical procedure and soft cervical collar in place. Cardiovascular: There is a regular rate and rhythm. No murmur, rub or gallop is appreciated. Respiratory: Lungs are clear to auscultation, respirations are non-labored, breath sounds are equal. Gastrointestinal: Soft, non-distended, non-tender abdomen. Back: There is no tenderness to palpation in the midline, paralumbar, parathoracic or buttocks region. There is no obvious deformity . Musculoskeletal: ROM limited secondary to pain and stiffness from surgical procedure. Muscle strength in all major muscle groups of bilateral upper extremities 4/5, bilateral lower extremities 5/5. Neurological: CN 2-12 intact. There are no obvious motor or sensory deficits. Movement and coordination equal and intact. Sensory exam to light touch intact C5-T1 and intact from L2-S1. Reflexes 2/4 in bilateral upper and lower extremities. Negative Hoffmans, babinski, and clonus signs. Psychiatric: Cooperative, appropriate mood & affect, normal judgment. Assessment and Plan Assessment: Postop day 1: C5-C7 TDR 1. C5-7 HNP, Large 2. Severe stenosis C5-7 3. Bilateral upper extremity radiculopathy 4. Left upper extremity weakness Plan: -Appreciate disaster recovery consultant and team management. -Activity: Ambulate QID, OOB all meals, up and about, limit lifting bending twisting to less than 5 lbs. Use walker or cane if needed for stability. -Daily PT/OT, increase ambulation strength and balance. -Soft cervical collar when up and about, not needed in bed or chair -Pain control: Adequate at this time -Meds: reviewed -GI ppx: senna, Miralax -DVT PPX: Scds -Hygiene: Shower today. Maintain dressing clean and dry. Meticulous cleaning after BMs away from the incision site -Encourage IS 10x/hr -Dispo: Anticipate discharge home later today *I reviewed and discussed this case with my attending Dr. Phoenix, whom has reviewed this chart and films and is in agreement with assessment and plan of care as outlined above. I have personally seen and examined the patient, performed the documentation and the assessment and plan as written. Number of minutes spent on the visit: 20m.
--- NOTE | 2022-11-29 08:45 | P.DS ---
Providers Date of admission: 11/28/22 Expected date of discharge: 11/29/22 Attending physician: Jerry Phoenix DO Consults: 11/28/22 18:40 Consult Physician Routine Consulting Provider: Caterina Aponte Consult Reason/Comments: medical management s/p C5-C7 total disc replacement Do you want consulting provider notified?: Yes Primary care physician: [facility] Hospital Course: Hospital Course: The patient was evaluated preoperatively and found to have the diagnosis of lumbar spondylosis with stenosis. They underwent appropriate preoperative care and were willing to undergo the intended procedure. They underwent a successful C5-C7 total disc replacement, were recovered appropriately and sent to the floor. While on the floor they worked with physical therapy, occupational therapy and nursing to enhance their recovery experience. Their pain was well controlled through their stay and they were started on appropriate medications, DVT ppx modalities, activity and dietary needs. Daily labs were monitored closely, and transfusions were only used when necessary. Medicine as well as other consulting services have made their input and have helped with our team approach and multidisciplinary care. PT milestones have been met and passed and they have made the recommendation of home for this patient and treating providers agree with this care path. The patient will be discharged home with appropriate medications, instructions and follow-up information and in stable condition. Patient Condition at Discharge: Good Plan - Discharge Summary Discharge Rx Participant: Yes New Discharge Prescriptions: New Cyclobenzaprine [Flexeril] 5 mg PO TID PRN #60 tablet PRN Reason: Spasms Indomethacin [Indocin] 50 mg PO BID #56 capsule HYDROcodone/APAP 10-325MG [[place] 10-325] 1 tab PO Q4-6H PRN #42 tab PRN Reason: Pain cefaDROXiL [Duricef] 500 mg PO Q12HR 5 Days #10 cap Sennosides/Docusate Sodium [Senna Plus 8.6-50 mg Softgel] 1 each PO DAILY PRN #20 capsule PRN Reason: Constipation Discharge Medication List Cyclobenzaprine [Flexeril] 5 mg PO TID PRN #60 tablet 11/29/22 [Rx] HYDROcodone/APAP 10-325MG [[place] 10-325] 1 tab PO Q4-6H PRN #42 tab 11/29/22 [Rx] Indomethacin [Indocin] 50 mg PO BID #56 capsule 11/29/22 [Rx] Sennosides/Docusate Sodium [Senna Plus 8.6-50 mg Softgel] 1 each PO DAILY PRN #20 capsule 11/29/22 [Rx] cefaDROXiL [Duricef] 500 mg PO Q12HR 5 Days #10 cap 11/29/22 [Rx] Follow up Appointment(s)/Referral(s): Meaghan Schmidt MD [Primary Care Provider] - 1 Week Jerry Phoenix DO [Doctor of Osteopathic Medicine] - 10 Days Activity/Diet/Wound Care/Special Instructions: Spine Discharge and Recovery Instructions Date of Surgery: 11/28/2022 Diagnosis: Lumbar spondylosis with stenosis Procedure: C5-C7 total disc replacement Medications: See medication list All medication refills should be obtained through your primary care doctor or your clinic spine surgeon. Please discuss prescription refills at your follow up appointment. Do not call the hospital for medication refills. Dressing: Leave your dressing in place for a total of 5 days post operatively. Then you may remove your dressing and leave open to air. Keep the area clean and if not able to keep area clean, then cover with sterile gauze and tape. Showering: You may shower 3 days after your procedure allowing soap and water to run over incision. Do not scrub. Do not soak. Blot dry. Follow up: Please confirm a follow up appointment with your surgeon 3 weeks post operatively. Please make an appointment to follow up with your PCP in 1-2 weeks after surgery for evaluation 3 phase, 3-week plan POST OP WEEKS 1-3 1. Lifting/carrying/pushing/pulling limited to less than 5 pounds. 2. Do not sit for longer than 15 minutes at one time. Get up and walk around. Prolonged sitting is NOT advised. If you lay down, see if you can tolerate laying down on you front (belly side) 3. Walk for periods of 15 minutes = 1 mile but no longer; do it multiple times times each day. 4. Ice your low back after activity. POST OP WEEKS 3-6 1. Lifting limited to less than 20 pounds. 2. Do not sit for longer than 30 minutes at a time. Frequently change positions. Use a sit-to stand workstation or take frequent breaks from sitting if you have returned to work. 3. Walk for 30 minutes each day. If possible, do these three or more times a day POST OP WEEKS 6+ At your 6-week appointment we will give you a physical therapy referral to focus on a core stabilization and strengthening program. You should also work on leg & buttock strengthening, hamstring & quadriceps stretching, and continue a low impact aerobic activity program such as swimming, walking, or riding a stationary bicycle. During the initial 6 weeks after your surgery, you are at the highest risk of re-injuring your spine. You should generally avoid BLTs (bending, lifting and twisting combination motions) and follow the above guidelines to reduce the chance of reinjury. You can anticipate post op appointments in our office at approximately 3 weeks and 6 weeks after your surgery. INCISION CARE: If your incision is not draining you do NOT need to cover it with a dressing. Keep your incision clean, dry and intact. In most cases, we apply skin glue, jeff or sutures to the incision at the time of surgery. This will be like a crust or have the appearance of a scab and will fall off in time on its own. The stitches or jeff need to be removed at 3 weeks post op appointment. You may begin to shower 3 days after surgery (this allows the glue to vaz well). However, please avoid scrubbing the incision site or peeling off any of the skin glue. This will ensure optimal healing of your incision. Also, during this time avoid soaking the incision area in water - this includes swimming pools, hot tubs or baths. No ointments, lotions or oils on the incision until your surgeon allows. Leave jeff, sutures or glue in place. Neurological dysfunction that comes on suddenly can also be a sign of a stroke. Below some common symptoms of a stroke are listed: B - balance difficulty such as sudden onset walking or leaning to one side - NEW E - eye problem such as sudden double vision or trouble seeing on one side - NEW F - Facial weakness or numbness on one side - NEW A - Arm or leg weakness or numbness on one side - NEW S - Slurred speech or difficulty with word finding - NEW T - Time is BRAIN! Call 911 as soon as you recognize these symptoms Diet: Consume a regular diet rich in vegetables and lean protein such as chicken or fish. You should consume in a ratio of approximately 20% fats|40% carbo hydrates|40%protein. Vegetables, sweet potatoes, brown rice or quinoa are examples of good carbohydrates. Chips, white bread, cookies and sweets/sugar are examples of bad carbohydrates. Limit your bad carbs, go wild with good carbs. "Life's Simple 7" Guidelines as per [place] [employer] These will help you reclaim your life after surgery and seismograph helper in your recovery, keeping in mind your restrictions. (1) Get Active. Physical activity can help people lose weight, control high blood pressure and cholesterol, feel emotionally better, and sleep better. (2) Control Cholesterol. Avoid a diet high in saturated fat, trans fat, & cholesterol. Limit whole milk & cream, ice cream, butter, egg yolks, processed meats (like sausage and hot dogs), and fatty meats. Choose healthy foods that are low in saturated fat, trans fat and cholesterol which include: Fruits and vegetables, fiber rich grain products (like whole grain pasta and brown rice), lean meat such as chicken, fish, nuts, seeds, and legumes. (3) Eat Better. Eat small portions. Shop at the grocery with a list and do not stray from it. Tips for a healthy diet include: Limit sodium intake to less than 1500mg daily, avoid prepackaged, processed, and fast foods, choose a diet rich in fruits, vegetables, and whole grain, high fiber foods, and limit saturated & cholesterol in your diet. (4) Manage Blood Pressure. If you have high blood pressure, you should have a cuff at home so that you can check your blood pressure regularly. Be sure you have a good cuff. An arm one is generally better than a wrist one. Bring the cuff to a doctor's appointment to validate that the measurements that your cuff are taking are accurate. Take your blood pressure twice daily when you are sitting down and relaxing. Record the numbers in a log and bring this log with you to your doctors' appointments. (5) Lose Weight if your BMI is above 25. A healthy BMI is between 19-25. To calculate Your BMI, you may use a Standard BMI Calculator on the NIH BMI website: <www.nhlbi.nih.gov/guidelines/obesity/BMI/bmicalc.htm>. Weigh oneself daily. If you are overweight, set a goal to lose weight. A pound a week loss if needed is a good target. (6) Reduce Blood Sugar. Limit foods and liquids with "added sugars." (Added sugars include sucrose, fructose, glucose, maltose, dextrose, high fructose corn syrup, corn syrup, concentrated fruit juice and honey). (7) Stop Smoking. If you smoke, quitting smoking is one of the best things that you can do for your health. Smoking increases your risk of heart attack, stroke, and peripheral vascular disease, which is a build-up of plaque in your arteries. Please discard all the cigarettes and lighters in your house. Have a plan for what you will do when you have the urge to smoke. Direct and second- hand smoke shortens your life as well as the lives of your family, friends and others around you. For your health and the health of those around you, please consider quitting! Proper Bending Body Mechanics: Maintain a wide stance with one foot slightly in front of the other. Keep your back straight. Bend utilizing the strength in your hips and knees. Do not bend at the waist. Maintain the lifted object at your waist-level close to your body. Avoid lifting weight that causes immediately pain or pain anywhere in the body afterwards. Smoking/Nicotine If there was ever one thing that you could do to increase your overall health, decrease your risk of cardiovascular problems by about 39% the second you make the choice, it is to STOP SMOKING. Your body's most instant gratification is the second you stop smoking. We have all heard the studies, read the articles but it is true, smoking is extremely bad for your overall health, and moreover it is detrimental to your bone health. Nicotine, IN ANY FORM, kills bone cells, prevents your body from healing fractures, and significantly prolongs healing after surgery. In spine surgery specifically, it increases your risk of not healing your bones to create a fusion and increases your risk of having a revision surgery due to this up to 60%. I know it is hard. I know it feels impossible. But there are ways. Take control of your life. We are here to help you through it. And when you are ready, ask us and we can direct you to help if you desire. Use the START Plan to Quit Smoking (please visit the [employer]org website listed below for more information): S = Set a quit date. Choose a date within the next 2 weeks, so you have enough time to prepare without losing your motivation to quit. If you mainly smoke at work, quit on the weekend, so you have a few days to adjust to the change. T = Tell family, friends, and co-workers that you plan to quit. Let your friends and family in on your plan to quit smoking and tell them you need their support and encouragement to stop. Look for a quit richard who wants to stop smoking as well. You can help each other get through the rough times. A = Anticipate and plan for the challenges you'll face while quitting. Most people who begin smoking again do so within the first 3 months. You can help yourself make it through by preparing ahead for common challenges, such as nicotine withdrawal and cigarette cravings. R = Remove cigarettes and other tobacco products from your home, car, and work. Throw away all your cigarettes (no emergency pack!), lighters, ashtrays, and matches. Wash your clothes and freshen up anything that smells like smoke. Shampoo your car, clean your drapes and carpet, and steam your furniture. T = Talk to your doctor about getting help to quit. Your doctor can prescribe medication to help with withdrawal and suggest other alternatives. If you can't see a doctor, you can get many products over the counter at your local pharmacy or grocery store, including the nicotine patch, nicotine lozenges, and nicotine gum. Resources for Quitting Smoking: <https://www.[place].gov/documents/[facility]/Quit_Tob[place] co_Resources_for_patients_313480_7.pdf> Supplementation: Take recommended dosages of Vitamin D and Calcium to help fortify your bones and help them to heal. See your health maintenance packet for dosages and recommended levels. DVT/VTE prophylaxis: You will be given compression stockings from the hospital. Wear these daily for the first two weeks after surgery. You may take them off at night. You may be prescribed a medication to help thin your blood. Take this as directed. If you are not prescribed this medication, early and frequent ambulation has been shown to be the best prophylaxis to deep vein thrombosis and sequelae related to this event. Discharge Disposition: HOME SELF-CARE
[2022-11-29 08:50] VITALS: BP 123/83; PULSE 67; RESP 17; TEMP 98
[2022-11-29 11:13] LABS: Basophils # (A) 0.03 X 10*3/uL (0.00-0.10); Basophils % (A) 0.2 %; Eosinophils # (A) 0.02 X 10*3/uL (0.04-0.35); Eosinophils % (A) 0.1 %; HGB 14.8 d/dL (12.0-15.0); Lymphocytes # (A) 2.33 X 10*3/uL (0.90-5.00); Lymphocytes % (A) 12.3 %; MCH 29.1 pg (27.0-32.0); MCHC 32.9 d/dL (32.0-37.0); MCV 88.6 FL (80.0-97.0); Mean Platelet Volume 10.9 FL (9.5-12.2); Monocytes # (A) 1.05 X 10*3/uL (0.20-1.00); Monocytes % (A) 5.6 %; NRBC Per 100 WBC 0 X 10*3/uL (0.00-0.01); Neutrophils # (A) 15.38 X 10*3/uL (1.80-7.70); Neutrophils % (A) 81.3 %; Platelet Count 213 X 10*3/uL (140-440); RBC 5.08 X 10*6/uL (4.40-5.60); RDW 13.3 % (11.5-14.5); WBC 18.91 X 10*3/uL (4.50-10.00)
[2022-11-29 11:21] LABS: BUN/Creat Ratio 10.75 Ratio (12.00-20.00); Blood Urea Nitrogen 8.6 mg/dL (9.0-27.0); Calcium 9.2 mg/dL (8.7-10.3); Carbon Dioxide 26.4 mmol/L (21.6-31.8); Chloride 102 mmol/L (96-109); Glucose 98 mg/dL (70-110); Potassium 3.9 mmol/L (3.5-5.5); Sodium 138 mmol/L (135-145)
--- NOTE | 2022-11-29 16:27 | P.PN ---
Subjective Progress Note Date: 11/29/22 Hospital course: Patient is a very pleasant 37-year-old male with a past medical history of chronic back pain, nicotine dependence, and cannabinoid use disorder. He is currently admitted under orthospine surgery team status post C5 through 6 and C6 through C7 total disc replacement. Surgical procedure was completed by Dr. Phoenix on 11/28/22. We have been consulted for medical management throughout patient's hospitalization. Physical exam: Vital signs reviewed and stable. General: Nontoxic, no distress and appears stated age. Derm: Skin warm and dry, normal coloration for ethnicity. Head: Atraumatic, normocephalic and symmetric. Soft c-collar in place. Eyes: EOMs intact, no lid lag, and anicteric sclera Mouth: no lip lesions, mucus membranes moist Cardiovascular: regular rate and rhythm with normal S1S2, no murmur, positive posterior tibial pulses bilaterally, and cap refill < 2 seconds. Lungs: Respirations even, regular, and unlabored on room air. Lungs CTA bilaterally, no rhonchi, no rales, no wheezing, and no accessory muscle usage. Abdominal: soft, nontender to palpation, no guarding, no appreciable organomegaly Ext: ROM intact. No gross muscle atrophy, no edema, no contractures Neuro: Speech clear, face symmetrical and CN II-XII grossly intact with no noted focal neuro deficits Psych: Alert and oriented to person, place, time, and situation. Appropriate and pleasant affect. Assessment and Plan of Care: Status post C5 through 6 and C6 through C7 total disc replacement. Chronic neck and back pain with radiculopathy -Management per primary admitting orthospine surgery team including DVT prophylaxis, pain management, wound/dressing care, drain management, progression of activity, and PT/OT. -DVT prophylaxis with SCDs. Postoperative leukocytosis, believed to be reactive this patient shows no signs of infection at this time. -CBC showing WBC count of 18.91, again believed to be reactive. We will repeat to monitor for resolution. Nicotine dependence Continue nicotine patch 21 mg daily and recommend smoking cessation. Data review: -Labs completed and reviewed. CBC showing leukocytosis with WBC count of 18.91, believed to be reactive. BMP was unremarkable. Vital signs reviewed and stable. Blood pressure 123/83, heart rate 67, respiratory rate 17, and SpO2 monitor percent on room air. Imaging review No new imaging for review. Thank you for allowing us to participate in the care of this pleasant patient. Do not hesitate to contact us with questions. Someone can be reached from the [facility] hospitalist group all hours of the day at [phone] or via perfect serve. Patient was seen independently by Nurse Pracitioner. This document was prepared using [employer] dictation software. Please allow for errors in precision machine operator, while rare they do occur. Perez Vo NP rendered care for this patient independently, reviewed the findings and plan as documented in the note above. I did not physically speak with or examine the patient on this date. Objective - Vital Signs Vital signs: Vital Signs Temp 98.3 F 11/29/22 01:47 Pulse 101 H 11/29/22 01:47 Resp 20 11/29/22 01:47 BP 126/75 11/29/22 01:47 Pulse Ox 95 11/29/22 01:47 FiO2 Intake & Output 11/28/22 11/29/22 11/29/22 18:59 06:59 18:59 Intake Total 1650 100 Output Total 25 Balance 1625 100 Weight 90.718 kg Intake: IV 1650 100 Output: Estimated Blood Loss 25 Other: Voiding Method Toilet Urinal # Voids 3 - Labs CBC & Chem 7: 11/29/22 06:47 11/29/22 06:47
== END 2022-11-29 13:30 | disposition home or self-care (01) ==
LOC: OR 12:40 → 4SSUR 18:31 → OR 11-29 13:30
PROVIDERS: ATTEND Orthopaedic Surgery
DX: M50.222 Other cervical disc displacement at C5-C6 level (principal); M48.02 Spinal stenosis, cervical region; K21.9 Gastro-esophageal reflux disease without esophagitis; E11.40 Type 2 diabetes mellitus with diabetic neuropathy, unspecified; F17.210 Nicotine dependence, cigarettes, uncomplicated; F10.90 Alcohol use, unspecified, uncomplicated; F12.90 Cannabis use, unspecified, uncomplicated; Z91.048 Other nonmedicinal substance allergy status
CPT/HCPCS: 97162; 86900; 86901; 80048; 85025; 85610; 86850; 72040; 72125; 22856; 22858; L0120; C1713; S4990; J1100; J0690 ×2; J2405; J1170 ×2

== ENCOUNTER → 2023-03-26 | Outpatient (CLI) | payer OTHER ==
--- NOTE | 2023-03-27 14:05 | MR ---
EXAMINATION TYPE: MR shoulder LT wo con DATE OF EXAM: 03/26/2023 COMPARISON: MRI left shoulder August 21, 2022 HISTORY: Left shoulder pain with difficulty raising arm overhead for 4 months. TECHNIQUE: Multiplanar, multisequence imaging of the left shoulder is performed without contrast. FINDINGS: Rotator Cuff: Some increased signal in the supraspinatus and infraspinatus tendons including is redem onstrated. Subscapularis tendon is intact. No retracted tear is seen. Rotator cuff muscle bulk remain s preserved. Acromioclavicular Joint: Bbew-rl-tauxczli superior capsular hypertrophy and joint space narrowing is redemonstrated with mild spurring. Distal acromial morphology slightly downsloping anteriorly with lo ss of fat plane at this level redemonstrated. Glenohumeral Joint: Small to moderate size joint effusion is stable. No significant spurring. Labrum: Superior labrum remains intact. Biceps Tendon: The long head of biceps is in normal location within bicipital groove. Bone marrow signal: Single 3 to 4 mm subchondral cyst inferior osseous glenoid anterior aspect axial image 8 is redemonstrated and slightly more elongated or larger on coronal images. Other: No additional significant abnormality is appreciated. IMPRESSION: 1. Stable tendinosis of the rotator cuff tendons. No new rotator cuff or labral tear seen. Degenerati ve changes redemonstrated similar to prior.
== END | disposition home or self-care (01) ==
LOC: RADMRIMAIN 19:30
PROVIDERS: ATTEND Orthopaedic Surgery
DX: M75.42 Impingement syndrome of left shoulder (principal); M67.814 Other specified disorders of tendon, left shoulder

== ENCOUNTER → 2023-07-17 | Outpatient (CLI) | payer OTHER | END | disposition home or self-care (01) | LOC: LABPAT 09:02 | PROVIDERS: ATTEND Orthopaedic Surgery | DX: Z01.812 Encounter for preprocedural laboratory examination (principal); M25.812 Other specified joint disorders, left shoulder; Z22.322 Carrier or suspected carrier of Methicillin resistant Staphylococcus aureus | CPT/HCPCS: 36415; 86850; 86900; 86901; 87070 ==

== ENCOUNTER → 2023-07-21 | Outpatient (CLI) | payer OTHER ==
[2023-07-21 17:25] LABS: HCT 49.4 % (39.0-53.0); HGB 16.3 gm/dL (13.0-17.5); MCH 29.6 pg (25.0-35.0); MCHC 32.9 g/dL (31.0-37.0); MCV 89.8 fL (80.0-100.0); Mean Platelet Volume 8.8; Platelet Count 205 k/uL (150-450); RDW 13.1 % (11.5-15.5); WBC 9.6 k/uL (3.8-10.6)
[2023-07-21 17:30] LABS: ALT 42 U/L (4-49); AST 35 U/L (17-59); African American GFR (CKD) >90 (>60 ml/min/1.73 sqM); Albumin 4.5 g/dL (3.5-5.0); Albumin/Globulin Ratio 1.7; Alkaline Phosphatase 55 U/L (38-126); Anion Gap 4 mmol/L; Blood Urea Nitrogen 12 mg/dL (9-20); Calcium 9.4 mg/dL (8.4-10.2); Carbon Dioxide 31 mmol/L (22-30); Chloride 105 mmol/L (98-107); Globulin 2.7 g/dL; Glucose 84 mg/dL (74-99); Non-African American GFR(CKD) >90 (>60 ml/min/1.73 sqM); Potassium 4.1 mmol/L (3.5-5.1); Sodium 140 mmol/L (137-145); Total Bilirubin 0.5 mg/dL (0.2-1.3); Total Protein 7.2 g/dL (6.3-8.2)
== END | disposition home or self-care (01) ==
LOC: LABWHC1 15:35
PROVIDERS: ATTEND Orthopaedic Surgery
DX: Z01.812 Encounter for preprocedural laboratory examination (principal)
CPT/HCPCS: 80053; 82306; 85027; 85610

== ENCOUNTER 2023-07-24 11:59 | Day surgery (SDC) | payer OTHER ==
[2023-07-21 11:15] VITALS: BMI 30.7
--- NOTE | 2023-07-24 06:17 | P.HPOR ---
History of Present Illness H&P Date: 07/16/23 .D:Date: 07/16/23 : 09:15am .T:Title: [facility] History and Physical Date of :[birth year] [id number]: NKDA Age: 38 year Height: 5'11" Weight: 220 lbs BP:134/91 BMI: 30.68 kg/m2 Occupation: [employer] VAS: 6 Hand:Right ASSESSMENT: It was my pleasure to have seen and examined Amandeep. I reviewed the patient's clinical syndrome, physical findings, and imaging studies during the appointment today. It is my impression that the patient has a diagnosis of. 1. Left shoulder rotator cuff tendinopathy tendinosis 2. Left biceps tendinitis 3. Subacromial impingement 4. Labral tear left shoulder Spine Surgery Risk Review Mr. Jorge Jean is presenting for evaluation of left shoulder pain. It was my pleasure to have seen and examined Mr. Jorge Jean. In our visit today we have had a chance to go over subjective complaints, physical examination findings and treatments including the natural course history without intervention and various interventional options. The patients imaging demonstrates: 06/16/2023 x-rays two-view AP lateral cervical spine done at [facility] see reviewed today with the patient: These demonstrate postsurgical changes C5 through [address]. No evidence of fracture failure or migration. Good decompression noted. Alignment stable. MRI of the left shoulder which was done on 03/26/2023 at [facility] was re-reviewed today. This demonstrates rotator cuff tendinosis tendinopathy with bicipital tendinitis fluid around the biceps tendon this tracks of the bicep tendon sheath to the superior glenoid and labrum were cystic like formation of fluid has been accumulated. This suggests a labral tear as well superiorly. There is subacromial impingement due to spurring. Subacromial bursitis also identified. On physical exam, Mr. Jorge Jean demonstrates: A continued left shoulder pain. He continues to have fairly severe left shoulder pain which is prohibiting him from doing much of his daily activities as well as his work.The shot and shoulder did not help it wore off. Physical therapy continues to make his shoulder worse with his pain. He denies any new trauma to the area.States his neck is doing very well. The pain does not radiate down his arm states directly in his shoulder and the front and outside lateral portion of the shoulder. It is difficult for him to initiate abduction as well as forward flexion as this creates a lot of pain. I have explained to the patient that as their condition progresses it will cause further neurological deficits and eventual paralysis. Based on the patients imaging, physical exam, and the rapid progression and disabling nature of their symptoms, at this time I recommend surgery in the form of a: Left shoulder arthroscopy with subacromial decompression rotator cuff repair and biceps tenotomy tenodesis and possible labral debridement versus repair. I discussed the risk and benefits of this procedure at length with Mr. Jorge Jean. The patient agreed to considered pursuing the procedure abovementioned. Prior to surgery, she should follow up with her PCP (Cardio, ID, IM etc) for clearance. Questions were invited and answered, and the patient wishes to proceed as outlined below. Currently, I am recommendin. Left shoulder arthroscopy with subacromial decompression rotator cuff repair and biceps tenotomy tenodesis and possible labral debridement versus repair 2.Review of surgical risks and benefits as well as an educational packet on the proposed surgical procedure. Risks: All surgical procedures come with inherent risks, including those related to po sitioning, anesthesia, intraoperative findings, and postoperative complications. It is important to understand that surgery does not come with any guarantee of a successful outcome as complications and adverse events are always possible. The patient was given a handout in office today discussing the surgical procedure and risks associated with the intervention, both of which were discussed with the patient. These risks include but are not limited to the following: * Experiencing same, different or even worse symptoms in back, neck, arms, or legs compared to before surgery. Requiring further surgery or other forms of treatment presently or at some time in the future at same or other levels of the intended spine surgery. On an extreme but fortunately relatively rare basis severe complication such as blindness, stroke, heart attack, temporary and/or permanent nerve injury, paralysis, coma, or may occur, sometimes without known explanation. Surgical complications may include but are not limited to risk of infection, fluid accumulation in the surgical dissection site, including a seroma or hematoma, that requires additional surgery, wound drainage, bleeding, new numbness or weakness, vision changes/loss, spinal fluid leakage, non-healing and/or infected incision, headaches, difficulty or inability to swallow, hoarseness, hemopneumothorax, pneumothorax, impotence, retrograde ejaculation, vaginal dryness; injury to nerves, spinal cord, blood vessels, lymphatics or other vital organs (i.e., bowel injury, injury to the great vessels); heterotopic bone formation; complications related to the hardware such as screws, rods, cages including misplaced hardware, device failure, instrumentation at the wrong spine level, hardware fracture/breakage, or hardware loosening; vertebral failure of the spinal column above or below the newly placed hardware; retained surgical instrumentations or devices and the need for further surgery. * Medical risks of the planned spine surgery include but are not limited to generalized Infections to the whole body or local areas outside of the surgical site (sepsis), heart attack, bleeding, anaphylaxis, meningitis, seizure, epilepsy, hearing loss, burn shine, laceration of the head or other areas of the body, bruising, hypersensitivity of the skin, bladder over distension; allergic reaction; shoulder injury related to positioning; fat, blood and air clots to other areas of the body like heart, lungs, brain; failure of internal organs such as lungs, kidneys, liver and excessive bleeding. If blood transfusions are necessary, note that transfusions may cause intolerance reactions such as anaphylaxis or other complex reactions. Despite best efforts, the results of spine surgery might not heal in terms of bone, soft tissues such as skin, fascia, ligaments, and joints. Additionally, in order to achieve best possible results, spine surgery may be carried out beyond the initially planned levels and involve decompression, fusion including insertion of hardware at levels other than the original intended area of surgical interest change some portions of the procedure in order to ensure the best possible outcomes. With spine surgery and spinal fusion, there are different off label uses of instrumentation (devices, implants and hardware) as well as biological substances (bone morphogenic proteins, demineralized bone matrix) as well as using extra bone from allograft sources (i.e. cadaver bone) or autograft (iliac crest bone, ribs, or the spine itself). The patient has been given information about these practices and their inherent risks and benefits. [facility] is an educational center that serves as a training facility for neurosurgical and orthopedic [employer]IL[employer] and Nursing students. Physician assistants are medically trained surgical providers who function in the outpatient, inpatient, and operating room setting under the direct supervision of the attending surgeon. [facility] has multiple operating rooms with single and overlapping rooms running daily. They currently function under the required guidelines as produced by the [facility] with regards to the overlapping rooms and will continue to comply with changes to this policy as they occur. The requirements include and are complied with as follows: (1) the critical portions of the overlapping rooms will not occur at the same time, (2) the attending physician will be physically present during the critical portions of the procedure and immediately available during the entire case, and (3) a back-up attending is designated should the primary attending not be immediately available. The patient has had a chance to review all the listed information, has been given print outs detailing this information, and has had all his/her questions answered to their satisfaction. It was my pleasure to have seen and examined Mr. Jorge Jean. In our visit today we have had a chance to go over my understanding of our patient's current condition, the natural course history without intervention and various interventional options. Questions were invited and answered, and the patient wishes to proceed as outlined above. I have seen and examined the patient for 25 minutes and we have spent more than 50% of the time in repeat and detailed counseling about the patient's condition, its natural course history with out and as much as can be predicted with surgery and re-review of various surgical treatment options. In conclusion, Mr. Jorge Jean requested we proceed with the above suggested surgery and are willing to accept risks and limitations of the suggested surgery as nature of the disease process and our best attempts at treatment for the condition. Thank you again for allowing us to be part of your patient's care. Please don't hesitate to contact me if you have any further questions. Follow-up: Post procedure Patient Education: (Informational booklet, instructions, etc) given at today's appointment: Yes .ED:Patient Education: Y Medications Reviewed: YES In our visit today Mr. Jorge Jean and I have had a chance to go over my understanding of the patient's current condition, the natural course history without intervention and various interventional options. Questions were invited and answered, and the patient wishes to proceed as outlined above. I will be sure to keep you updated afterMr. Jorge Jean returns here for further follow-up. Thank you again for your referral. Please do not hesitate to contact me if you have any further questions. Signed and authenticated by: Jerry Mclaughlin [facility] Complex [facility] Minimally Invasive Spine Surgery [address] [place] [address] This message is confidential, intended only for the named recipient(s) and may contain information that is privileged or exempt from disclosure under applicable law. If you are not the intended recipient(s), you are notified that the dissemination, distribution or copying of this information is strictly prohibited. If you received this message in error, please notify the sender then delete this message. Patient verbalizes understanding of the information discussed. The above note was initiated by Marce Bustos, physician recording intellectual property legal assistant for Dr. Jerry Phoenix. This note has been reviewed by Dr. Phoenix, who has made his personal changes and impressions for this document. CC: Meaghan Schmidt MD # SIGNED BY Jerry Phoenix (GOO)07/21/2023 09:12AM Past Medical History Past Medical History: Osteoarthritis (OA) Additional Past Medical History / Comment(s): left shoulder pain-injury years ago,kidney stones History of Any Multi-Drug Resistant Organisms: MRSA Date of last positivie culture/infection: 2003 MDRO Source:: right elbow Past Surgical History: Back Surgery Additional Past Surgical History / Comment(s): vasectomy 2012,cervical c6-c7 spine-2 discs replaced Past Anesthesia/Blood Transfusion Reactions: No Reported Reaction Additional Past Anesthesia/Blood Transfusion Reaction / Comment(s): no hx blood transfusion Smoking Status: Current every day smoker - Past Family History Mother Family Medical History: No Reported History Medications and Allergies Home Medications Medication Instructions Recorded Confirmed Type Ibuprofen [Advil] 800 mg PO Q8HR PRN 07/21/23 07/21/23 History Allergies Allergy/AdvReac Type Severity Reaction Status Date / Time wool Allergy Rash/Hives Verified 07/21/23 10:08 Physical Examination Osteopathic Statement: *. No significant issues noted on an osteopathic structural exam other than those noted in the History and Physical/Consult.
[~2023-07-24 11:59] MED LIST changes: -DEXAMETHASONE SOD PHOSPHATE 4 MG/ML 1 ML VIAL IV ONE; -LACTATED RINGERS 1,000 ML IV SCH; -LIDOCAINE 1% (10MG/ML) FOR IV START INTRADERMA PRN; -MIDAZOLAM 2 MG/2 ML VIAL IV PRN; -ONDANSETRON 4 MG/2 ML VIAL IVP ONE; +ONDANSETRON 4 MG/2 ML VIAL IVP PRN; +TRANEXAMIC 1,000 MG/100ML-NACL 1,000 MG in SALINE 1 100ML.BAG IVPB PRN
[2023-07-24] MEDS: LACTATED RINGERS 1,000 ML IV SCH (12:37)
[2023-07-24 12:43] VITALS: TEMP 98
[2023-07-24] MEDS: ACETAMINOPHEN TAB 500 MG TAB PO PRN (12:44)
[2023-07-24] MEDS: GABAPENTIN 300 MG CAP PO PRN (12:44)
[2023-07-24] MEDS: DEXAMETHASONE SOD PHOSPHATE 4 MG/ML 1 ML VIAL IV ONE (12:46)
[2023-07-24] MEDS: ONDANSETRON 4 MG/2 ML VIAL IVP ONE (12:46)
[2023-07-24] MEDS: MIDAZOLAM 2 MG/2 ML VIAL IVP ONE (13:01)
[2023-07-24] MEDS ORDERED: PROPOFOL 10 MG/ML 20 ML VIAL IV ONE (14:36)
[2023-07-24] MEDS ORDERED: MIDAZOLAM 2 MG/2 ML VIAL ONE (14:36)
[2023-07-24] MEDS ORDERED: PHENYLEPHRINE 10 MG/ML VIAL ONE (14:36)
[2023-07-24] MEDS ORDERED: KETOROLAC 15 MG/ML 1 ML VIAL ONE (14:36)
[2023-07-24] MEDS ORDERED: TRANEXAMIC 1,000 MG/100ML-NACL PREMIX BAG ONE (14:36)
[2023-07-24] MEDS ORDERED: GLYCOPYRROLATE 0.2 MG/ML 2 ML VIAL ONE (14:36)
[2023-07-24] MEDS ORDERED: ROPIVACAINE 5 MG/ML 30 ML VIAL ONE (14:36)
[2023-07-24] MEDS ORDERED: ROCURONIUM 10 MG/ML (5 ML VIAL) IV ONE (14:36)
[2023-07-24] MEDS ORDERED: fentaNYL (PF) 50 MCG/ML 2 ML AMP ONE (14:36)
[2023-07-24] MEDS ORDERED: DEXAMETHASONE SOD PHOSPHATE 4 MG/ML 1 ML VIAL ONE (14:36)
[2023-07-24] MEDS ORDERED: SUCCINYLCHOLINE CHLORIDE 200 MG/10 ML VIAL IV ONE (14:36)
[2023-07-24] MEDS ORDERED: LIDOCAINE 1% INJ 10MG/ML (20 ML MDV) ONE (14:36)
[2023-07-24] MEDS ORDERED: NEOSTIGMINE 1 MG/ML 10 ML VIAL ONE (14:36)
--- NOTE | 2023-07-24 16:20 | P.OP ---
Date of Procedure: 07/24/23 Preoperative Diagnosis: 1. Left shoulder impingement 2. Left shoulder bicipital tendonitis 3. Left shoulder labral tear Postoperative Diagnosis: 1. Left shoulder impingement 2. Left shoulder bicipital tendonitis 3. Left shoulder labral tear Procedure(s) Performed: 1. Left shoulder arthroscopy 2. Left labral debridment 3. Left shoulder subacromial decompression 4. Left shoulder shona procedure Implants: None Anesthesia: GETA Surgeon: Jerry Phoenix Coding Consultant #1: Satish De La Paz (Was present and assisted with all aspects of the case from position to clousre) Estimated Blood Loss (ml): 10 IV fluids (ml): 1,200 Urine output (ml): 0 Pathology: none sent Condition: stable Disposition: PACU Indications for Procedure: Mr. Jorge Jean is presenting for evaluation of left shoulder pain. It was my pleasure to have seen and examined Mr. Jorge Jean. In our visit today we have had a chance to go over subjective complaints, physical examination findings and treatments including the natural course history without intervention and various interventional options. The patients imaging demonstrates: 06/16/2023 x-rays two-view AP lateral cervical spine done at [facility] see reviewed today with the patient: These demonstrate postsurgical changes C5 through [address]. No evidence of fracture failure or migration. Good decompression noted. Alignment stable. MRI of the left shoulder which was done on 03/26/2023 at [facility] was re-reviewed today. This demonstrates rotator cuff tendinosis tendinopathy with bicipital tendinitis fluid around the biceps tendon this tracks of the bicep tendon sheath to the superior glenoid and labrum were cystic like formation of fluid has been accumulated. This suggests a labral tear as well superiorly. There is subacromial impingement due to spurring. Subacromial bursitis also identified. On physical exam, Mr. Jorge Jean demonstrates: A continued left shoulder pain. He continues to have fairly severe left shoulder pain which is prohibiting him from doing much of his daily activities as well as his work.The shot and shoulder did not help it wore off. Physical therapy continues to make his shoulder worse with his pain. He denies any new trauma to the area.States his neck is doing very well. The pain does not radiate down his arm states directly in his shoulder and the front and outside lateral portion of the shoulder. It is difficult for him to initiate abduction as well as forward flexion as this creates a lot of pain. I have explained to the patient that as their condition progresses it will cause further neurological deficits and eventual paralysis. Based on the patients imaging, physical exam, and the rapid progression and disabling nature of their symptoms, at this time I recommend surgery in the form of a: Left shoulder arthroscopy with subacromial decompression rotator cuff repair and biceps tenotomy tenodesis and possible labral debridement versus repair. I discussed the risk and benefits of this procedure at length with Mr. Jorge Jean. The patient agreed to considered pursuing the procedure abovementioned. Prior to surgery, she should follow up with her PCP (Cardio, ID, IM etc) for clearance. Questions were invited and answered, and the patient wishes to proceed as outlined below. Currently, I am recommendin. Left shoulder arthroscopy with subacromial decompression rotator cuff repair and biceps tenotomy tenodesis and possible labral debridement versus repair Description of Procedure: The patient was seen and examined in the preoperative area. All preoperative protocols were followed. Informed consent was obtained risks and benefits of the procedure were discussed at length. Risks including bleeding infection damage to the surrounding tissue and risk of reoperation were discussed with the patient. Risk of anesthesia up to and including was a discussed with the patient. These are outlined in the risk reviewed. They were willing to accept these risks and all of the risks of surgery. The patient was given a weight- based dose of antibiotics in the form of 2 g Ancef. The patient was seen and evaluated by the anesthesia team who deemed them fit for surgery. The site was marked, the patient was willing to proceed with the procedure. and interscalene block of the left shoulder was done by the department anesthesia and preoperative unit good block was achieved. The patient was transferred to the operative suite by the Department of anesthesia. There were then drifted off to sleep by the department of anesthesia and GETAanesthesia was used. Once adequate anesthesia had been obtained the patient was carefully transferred to the operative bed. All bony prominences were padded accordingly. SCDs were placed on the nonoperative lower extremities. Arms were well padded. Headholder was placed and the patient was placed into the beachchair position. Right arm was placed on a well-padded arm braswell. He was secured to the table to safety strap. Preoperative briefing was done with the operative team and everyone was ready for the procedure to start. The patients Left arm and shoulder was then prepped and draped in the normal sterile fashion. Timeout was then performed and all parties in agreement with the procedure to be performed. The patient's left arm was then placed in a Trumano Arm braswell. standard posterior portal to the left shoulder was then made skin neck was made with an 11 blade and the trocar for the scope was introduced into the left glenohumeral joint. The scope was introduced and the joint was insufflated. Diagnostic arthroscopy ensued. There was fraying of the anterior superior labrum as well as of the inferior portion of the biceps tendon. Rotator cuff was intact from the underside. Mild chondromalacia noted in the central portion of the glenoid. Grade 1. Superolateral labral recess was slightly enlarged however there was no detachment of the labrum. There was a slight circumferential radial tear of the superior labrum however was still stable. Anterior portal was then made under direct visualization 18-gauge spinal needle was introduced followed by a 11 blade. Rotator interval was accessed with a blunt probe. Shaver was then introduced and the labral debridement was done. Further investigation of the long head of the biceps was done there was minimal bicipital tendinitis noted distally and so is elected at this time to leave the biceps tendon intact and simply debride the superior and anterior labrum. After this was accomplished the scope was replaced in the subacromial space. Subacromial decompression was then done using a shaver and [employer]throCare wand. There is exuberant bursal tissue which was removed. Rotator cuff was visualized and was intact. Patient had a type III hooked acromion and there is a large spur anteriorly as well as on the distal clavicle. The AC joint was extremely arthritic as well. Subacromial burring was done to remove the spurs and a Shona procedure was done distal clavicle resection. We confirmed good resection of the clavicle. This relieved impingement this area. Meticulous hemostasis performed. shoulders taken through a range of motion and anterior and posterior cuff were visualized and was intact completely. Further debridement was done to clean up the subacromial space pictures taken. Shoulder was lavaged and the scope was withdrawn and excess irrigate was then removed. Portals were then closed with nylon in portal stitch. The wound was then cleaned and dressed sterilely with Adaptic 4 x 4's ABDs and tape. Patient was placed in a simple sling. The patient was then transferred back to their hospital bed. There were awaken ed by department of anesthesia having tolerated the procedure very well with no complications. The patient was then transported to the postoperative care unit in stable condition.
[2023-07-24 16:54] VITALS: RESP 16
[2023-07-24] MEDS: IV FLUID CONTINUATION 50 ML IV ONE (17:09)
[2023-07-24 17:51] VITALS: BP 132/79; PULSE 68
--- NOTE | 2023-07-25 10:03 | P.ANPRN ---
Procedure Note - Anesthesia - Nerve Block Performed Left Interscalene Single Time Out Performed: Yes Date of Procedure: 07/24/23 Procedure Start Time: 13:00 Procedure Stop Time: 13:03 Location of Patient: PreOp Indication: Acute Post-Operative Pain, Requested by Surgeon Sedation Type: Sedate with meaningful contact maintained Preparation: Sterile Prep Position: Supine Needle Types: Pajunk Needle Gauge: 21 Ultrasound used to visualize needle placement: Yes Ultrasound used to observe medication spread: Yes Blood Aspirated: No Pain Paresthesia on Injection Noted: No Resistance on Injection: Normal Image Stored and Saved: Yes Events: Uneventful and Well Tolerated (Ropivacaine 0.5% 20 cc plus dexamethasone 4 mg)
== END 2023-07-24 17:43 | disposition home or self-care (01) ==
LOC: OR 11:59
PROVIDERS: ATTEND Orthopaedic Surgery
DX: S43.492A Other sprain of left shoulder joint, initial encounter (principal); M75.42 Impingement syndrome of left shoulder; M75.22 Bicipital tendinitis, left shoulder; M19.90 Unspecified osteoarthritis, unspecified site; F17.200 Nicotine dependence, unspecified, uncomplicated; Z79.899 Other long term (current) drug therapy; X58.XXXA Exposure to other specified factors, initial encounter
CPT/HCPCS: 64415; 29823; 29826; J2250; J0330; J1100; J2710; J0690; J2405; J2001; J3010; J2795; J1885; J2704; J2371